=== PATIENT | male | born 1960 | race Caucasian/White ===

== ENCOUNTER 2023-12-21 22:29 | Emergency (ER) | payer OTHER ==
[~2023-12-21] VITALS: Ht 172.7 cm; Wt 75.8 kg
[2023-12-21 22:41] VITALS: O2SAT 97
[2023-12-22] MEDS: KETOROLAC 15MG/ML VIAL IM ONE (00:29)
[2023-12-22] MEDS: LIDOCAINE 5% PATCH TOP SCH (00:30)
[2023-12-22] MEDS ORDERED: LIDO700A15 TP (00:38)
[2023-12-22] MEDS ORDERED: NAPR-1176 MT (00:38)
[2023-12-22 00:51] VITALS: BP 131/88; PULSE 62; RESP 20; TEMP 37.00296; O2SAT 97
== END 2023-12-22 00:51 | disposition home or self-care (01) ==
LOC: ER 22:29
DX: M79.602 Pain in left arm (principal); R07.89 Other chest pain; M25.552 Pain in left hip; Z79.1 Long term (current) use of non-steroidal anti-inflammatories (NSAID); Z90.89 Acquired absence of other organs
CPT/HCPCS: 99283; 96372; J1885